=== PATIENT | male | born 2000 | race Caucasian/White ===

== ENCOUNTER 2023-10-24 17:42 | Emergency (ER) | payer OTHER ==
[~2023-10-24] VITALS: Ht 188 cm; Wt 77.3 kg
[2023-10-24 17:48] VITALS: BP 91/62; TEMP 98.4
[2023-10-24 18:29] VITALS: PULSE 79
== END 2023-10-24 18:30 | disposition home or self-care (01) ==
LOC: COL.ER 17:42
DX: S01.511A Laceration without foreign body of lip, initial encounter (principal); W21.09XA Struck by other hit or thrown ball, initial encounter; Y93.89 Activity, other specified